=== PATIENT | female | born 2000 | race African-American/Black ===

== ENCOUNTER 2023-04-07 22:10 | Emergency (ER) | payer OTHER ==
[~2023-04-07] VITALS: Ht 172.7 cm; Wt 53.2 kg
[2023-04-07 22:18] VITALS: BP 110/54; PULSE 92; RESP 14; TEMP 98; O2SAT 99
== END 2023-04-08 07:22 | disposition home or self-care (01) ==
LOC: ER 22:10
DX: Z20.2 Contact with and (suspected) exposure to infections with a predominantly sexual mode of transmission (principal); J45.909 Unspecified asthma, uncomplicated
CPT/HCPCS: 81025; 99282

== ENCOUNTER 2024-06-15 21:08 | Emergency (ER) | payer SELFPAY ==
[~2024-06-15] VITALS: Ht 175.3 cm; Wt 60.0 kg
[2024-06-15 21:10] VITALS: BP 132/87; PULSE 100; RESP 16; TEMP 98.9; O2SAT 99
== END 2024-06-15 22:51 | disposition left against medical advice (07) ==
LOC: ER 21:08
DX: J11.1 Influenza due to unidentified influenza virus with other respiratory manifestations (principal); Z53.21 Procedure and treatment not carried out due to patient leaving prior to being seen by health care provider
CPT/HCPCS: 99283